=== PATIENT | male | born 1970 | race African-American/Black ===

== ENCOUNTER 2017-12-04 11:30 | Emergency (ER) | payer OTHER ==
[~2017-12-04] VITALS: Ht 172.7 cm; Wt 77.1 kg
[2017-12-04 11:40] VITALS: BP 138/68
== END 2017-12-04 14:33 | disposition home or self-care (01) ==
LOC: ER 11:30
DX: S01.81XA Laceration without foreign body of other part of head, initial encounter (principal); S16.1XXA Strain of muscle, fascia and tendon at neck level, initial encounter; S00.03XA Contusion of scalp, initial encounter; V43.52XA Car driver injured in collision with other type car in traffic accident, initial encounter; Y93.89 Activity, other specified; Y99.8 Other external cause status; Y92.89 Other specified places as the place of occurrence of the external cause
CPT/HCPCS: 12011; 70450